=== PATIENT | male | born 1990 | race Caucasian/White ===

== ENCOUNTER 2017-04-06 15:02 | Emergency (ER) | payer SELFPAY ==
[2017-04-06] MEDS ORDERED: Ondansetron ODT 4 MG TAB ONE (15:47)
[2017-04-06] MEDS ORDERED: Dicyclomine 20 MG TAB ONE (15:47)
== END 2017-04-06 16:27 | disposition home or self-care (01) ==
LOC: ERS 15:02
DX: B34.9 Viral infection, unspecified (principal); F17.210 Nicotine dependence, cigarettes, uncomplicated
CPT/HCPCS: 99283; Q0162

== ENCOUNTER 2017-04-27 18:36 | Emergency (ER) | payer SELFPAY | END 2017-04-27 19:19 | disposition left against medical advice (07) | LOC: ERS 18:36 | DX: Z53.21 Procedure and treatment not carried out due to patient leaving prior to being seen by health care provider (principal) ==

== ENCOUNTER 2017-07-20 09:24 | Emergency (ER) | payer SELFPAY ==
[2017-07-20] MEDS ORDERED: Dexamethasone 10 MG/ML VIAL ONE (10:49)
== END 2017-07-20 11:13 | disposition home or self-care (01) ==
LOC: ERS 09:24
DX: T78.40XA Allergy, unspecified, initial encounter (principal); F17.210 Nicotine dependence, cigarettes, uncomplicated; Z71.6 Tobacco abuse counseling
CPT/HCPCS: 96372; 99406; J1100

== ENCOUNTER 2019-01-13 08:58 | Emergency (ER) | payer SELFPAY | END 2019-01-13 09:37 | disposition home or self-care (01) | LOC: ERS 08:58 | DX: R11.2 Nausea with vomiting, unspecified (principal); R19.7 Diarrhea, unspecified; F17.210 Nicotine dependence, cigarettes, uncomplicated | CPT/HCPCS: 99283 ==